=== PATIENT | female | born 1990 | race Caucasian/White ===

== ENCOUNTER → 2017-09-09 09:20 | Outpatient (CLI) | payer OTHER, MEDICAID, SELFPAY | PROVIDERS: PCP Physician Assistant; Visit Provider Physician Assistant | DX: Z53.9 Procedure and treatment not carried out, unspecified reason (principal) ==

== ENCOUNTER → 2017-09-09 09:32 | Outpatient (CLI) | payer OTHER, MEDICAID, SELFPAY ==
[2017-09-09 11:17] LABS: HCG Quantitative /Beta subunit < 2.39 mIU/mL
== END ==
PROVIDERS: PCP Physician Assistant; Visit Provider Physician Assistant
DX: N92.6 Irregular menstruation, unspecified (principal)
CPT/HCPCS: 36415; 84702

== ENCOUNTER → 2017-09-11 17:47 | Outpatient (CLI) | payer OTHER, MEDICAID, SELFPAY | PROVIDERS: PCP Physician Assistant; Visit Provider Physician Assistant | DX: Z53.9 Procedure and treatment not carried out, unspecified reason (principal) ==

== ENCOUNTER 2018-04-18 08:42 | Emergency (ER) | payer OTHER, MEDICAID, SELFPAY ==
[2018-04-18 08:56] VITALS: BP 137/92; PULSE 77; RESP 16; TEMP 36.3; O2SAT 100
--- NOTE | 2018-04-18 09:07 | ED.URI ---
HPI - URI/Sore Throat General Chief Complaint: Upper Respiratory Symptoms Stated Complaint: States abscess in throat Time Seen by Provider: 04/18/18 09:05 Source: patient and family Mode of arrival: ambulatory Limitations: no limitations History of Present Illness HPI Narrative: This is a 27-year-old female comes to the emergency department with complaint of right-sided throat pain patient states she has had symptoms on and off for about 2 weeks Friday she started having some more persistent sore throat. She was seen on and started oral antibiotics afternoon. Since then she feels like she has not really any improvement in her pain has not improved in is maybe a little bit worse. She does think swelling is significantly worse. Patient states she was started Augmentin, she was given a dose of Decadron in the urgent care clinic but no oral steroids. And was told to come here if she was not improving. Patient denies any fevers. She states she has been. She states painful so she has fluids. Patient states she feels like she to sleep night fluids other painful she is stridor breathing. Patient chest pain shortness of symptoms she denies any medical she states she history strep she has surgeries. She denies any allergies to medications. Related Data Previous Rx's Medication Instructions Recorded betamethasone dipropionate 1 bartolome TP 2XWEEK #60 ml 05/07/17 norethindrone-e.estradiol-iron 1 tab PO QDAY #1 pac 05/28/17 [Henning Fe 03/29 ()] hydroxyzine pamoate 25 mg capsule 25 - 50 mg PO HSP PRN #45 cap 09/09/17 citalopram 20 mg tablet 20 mg PO BID #60 tab 12/09/17 amoxicillin 875 mg-potassium 1 tab PO BID 10 Days #20 tab 04/16/18 clavulanate 125 mg tablet clindamycin HCl 300 mg PO QID #40 cap 04/18/18 prednisone See Rx Instructions .ROUTE 04/18/18 .COMPLEX #26 tab Allergies Allergy/AdvReac Type Severity Reaction Status Date / Time No Known Drug Allergies Allergy Verified 04/16/18 10:46 Review of Systems Review of Systems ROS Unobtainable: All systems reviewed & are unremarkable except as noted in HPI and below Constitutional Denies chills, Denies fever(s), Reports headache(s), Denies lethargy, Denies snoring and Denies weakness ENT Ears, Nose, Mouth, and Throat: Denies ear discharge, Reports otalgia (right side/side of swelling), Denies facial pain, Reports headache(s), Reports hoarseness, Denies neck mass, Denies neck pain, Reports sore throat, Reports throat swelling (right side of throat) and Denies tongue swelling Cardiovascular Denies chest pain, Denies dyspnea and Denies dyspnea on exertion Respiratory Denies cough, Denies dyspnea, Denies dyspnea on exertion, Denies snoring, Denies stridor and Denies wheezing Gastrointestinal Gastrointestinal: Denies nausea and Denies vomiting Musculoskeletal Denies neck pain Integumentary/Breasts Denies rash Neurologic Reports headache(s) and Denies weakness Allergic/Immunologic Reports throat swelling (right side of throat), Denies tongue swelling and Denies wheezing PFS Medical History Abnormal CXR (chest x-ray) (Acute) Depression with anxiety (Chronic) Migraines (Chronic) Chickenpox (Resolved) Surgical History Hx of surgical procedure (Resolved 1993) Family History Father Age: 67 Controlled type 2 diabetes mellitus without complication, unspecified 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 insulin use status Essential hypertension Gout, unspecified cause, unspecified chronicity, unspecified site History of prostate cancer High cholesterol Grandfather Cancer Hypertension High cholesterol Stroke Grandmother History of breast cancer Heart disease Hypertension High cholesterol Mother Age: 60 Essential hypertension Hyperlipidemia Arthritis Grandfather Cancer Hypertension Mental health problem Dementia Grandmother Age: 87 Cancer Diabetes mellitus Hypertension High cholesterol Social History Smoking Status: Never smoker second hand exposure: No alcohol intake: current (wine or beer about once a week or so.) substance use type: former substance user (marijuana.) Family History Father Age: 67 Controlled type 2 diabetes mellitus without complication, unspecified 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 insulin use status Essential hypertension Gout, unspecified cause, unspecified chronicity, unspecified site History of prostate cancer High cholesterol Grandfather Cancer Hypertension High cholesterol Stroke Grandmother History of breast cancer Heart disease Hypertension High cholesterol Mother Age: 60 Essential hypertension Hyperlipidemia Arthritis Grandfather Cancer Hypertension Mental health problem Dementia Grandmother Age: 87 Cancer Diabetes mellitus Hypertension High cholesterol Social History Smoking Status: Never smoker second hand exposure: No alcohol intake: current (wine or beer about once a week or so.) substance use type: former substance user (marijuana.) Exam Narrative Exam Narrative: GEN: well nourished, well appearing female, alert and oriented x 3, patient appears to be in mild distress. HEENT: Atraumatic, pupils are equal round reactive to light, extraocular movements are intact, nares are clear, TMs are clear with no fluid, there is no conjunctival pallor. Patient has swelling erythema of the right side of throat, no point or clear sign of drainage, patient's uvula is shifted slightly to the left. Patient does not have any facial or neck swelling appreciated. Patient does not have any erythema or skin changes the outside. No swelling of the tongue, no angioedema. No stridor. Patient is not having any difficulty with secretions. No tried potting she is lying back. HEART: Regular rate and rhythm without murmur, clicks, rubs. LUNGS:Lungs clear to auscultation, no wheezes, rales, crackles, chest moves symmetrically ABD:bowel sounds normal, soft, non-tender, no guarding, rebound, rigidity, no masses noted, no hepatosplenomegaly MSCL: Non-tender, no muscle atrophy, muscles strength 5/5 upper and lower extremities, full range of motion, normal gait NEURO:CN 2-12 intact, sensation normal Initial Vital Signs Initial Vital Signs: Vital Signs Temperature 97.4 F L 04/18/18 08:56 Pulse Rate 77 04/18/18 08:56 Respiratory Rate 16 04/18/18 08:56 Blood Pressure 137/92 H 04/18/18 08:56 Pulse Oximetry 100 04/18/18 08:56 Course Orders Ordered: ED Orders 04/18/18 09:30 Basic Metabolic Panel Stat Complete Blood Count AUTO DIFF Stat Lactate (Lactic Acid) Stat 04/18/18 10:00 Urinalysis and Microscopic Stat Discontinued Medications Dexamethasone (Decadron) 10 mg IV NOW ONE Stop: 04/18/18 09:06 Last Admin: 04/18/18 09:34 Dose: 10 mg Clindamycin Phosphate (Cleocin) 600 mg in 50 mls @ 50 mls/hr IV NOW ONE Stop: 04/18/18 10:04 Last Infusion: 04/18/18 10:33 Dose: 0 mls/hr Admin: 04/18/18 09:33 Dose: 50 mls/hr Sodium Chloride (Normal Saline 0.9%) 1,000 mls @ 1,000 mls/hr IV BOLUS ONE Stop: 04/18/18 10:04 Last Infusion: 04/18/18 12:12 Dose: 0 mls/hr Admin: 04/18/18 09:33 Dose: 1,000 mls/hr Ketorolac Tromethamine (Toradol) 30 mg IV NOW ONE Stop: 04/18/18 09:06 Last Admin: 04/18/18 09:33 Dose: 30 mg Vital Signs - 8 hr 04/18/18 11:00 04/18/18 11:26 04/18/18 11:43 Pulse Rate 71 80 82 Respiratory Rate 16 17 16 Blood Pressure [Right Arm] 122/89 122/89 124/82 Pulse Oximetry 99 100 100 MDM - URI/Sore Throat Lab Data Attestation: I reviewed the patient's lab results. Result diagrams: 04/18/18 09:30 04/18/18 09:30 Lab Results 04/18/18 04/18/18 04/18/18 Range/Units 09:30 09:30 09:30 WBC 12.4 H (4.5-11.0) X10^3/uL RBC 4.04 (4.0-5.2) X10^6/uL Hgb 12.1 (12.0-16.0) g/dL Hct 36.3 (36-46) % MCV 89.8 (80-100) fL MCH 29.9 (26-34) PG MCHC 33.3 (30-36) % RDW 12.4 (11.6-14.8) % Plt Count 318 (150-400) X10^3/uL Neut % (Auto) 76.3 H (50-75) % Lymph % (Auto) 14.2 L (25-40) % [place] % (Auto) 7.6 (3-14) % Eos % (Auto) 1.3 L (2-4) % Baso % (Auto) 0.6 (0-2) % Neut # (Auto) 9400 H (9007-0828) /uL Lymph # (Auto) 1800 (8221-5226) /uL [place] # (Auto) 900 (0-900) /uL Eos # (Auto) 200 (0-450) /uL Baso # (Auto) 100 (0-100) /uL Sodium 139 (137-145) mmol/L Potassium 4.6 (3.4-5.1) mmol/L Chloride 103 (98-107) mmol/L Carbon Dioxide 26 (22-32) mmol/L BUN 12 (7-17) mg/dL Creatinine 0.70 (0.52-1.04) mg/dL Estimated GFR > 60.0 (>60) mL/min BUN/Creatinine Ratio 17.1 (6-22) Glucose 98 (70-100) mg/dL Lactate 1.2 (0.7-2.1) mmol/L Calcium 9.3 (8.4-10.2) mg/dL Urine Color Urine Appearance Urine pH (4.5-8.0) Ur Specific [place] (1.000-1.035) Urine Protein (Negative) Urine Glucose (UA) (Negative) g/dL Urine Ketones (NEGATIVE) Urine Occult Blood (Negative) Urine Nitrate (Negative) Urine Bilirubin (NEGATIVE) Urine Urobilinogen (0.2) E.U./dL Ur Leukocyte Esterase (NEGATIVE) Urine RBC (0-5/HPF) Urine WBC (0-5/HPF) Ur Squamous Epith Cells Urine Bacteria (None) Ur Culture Indicated? 04/18/18 Range/Units 10:00 WBC (4.5-11.0) X10^3/uL RBC (4.0-5.2) X10^6/uL Hgb (12.0-16.0) g/dL Hct (36-46) % MCV (80-100) fL MCH (26-34) PG MCHC (30-36) % RDW (11.6-14.8) % Plt Count (150-400) X10^3/uL Neut % (Auto) (50-75) % Lymph % (Auto) (25-40) % [place] % (Auto) (3-14) % Eos % (Auto) (2-4) % Baso % (Auto) (0-2) % Neut # (Auto) (9716-4011) /uL Lymph # (Auto) (5638-1157) /uL [place] # (Auto) (0-900) /uL Eos # (Auto) (0-450) /uL Baso # (Auto) (0-100) /uL Sodium (137-145) mmol/L Potassium (3.4-5.1) mmol/L Chloride (98-107) mmol/L Carbon Dioxide (22-32) mmol/L BUN (7-17) mg/dL Creatinine (0.52-1.04) mg/dL Estimated GFR (>60) mL/min BUN/Creatinine Ratio (6-22) Glucose (70-100) mg/dL Lactate (0.7-2.1) mmol/L Calcium (8.4-10.2) mg/dL Urine Color Yellow Urine Appearance Clear Urine pH 5.5 (4.5-8.0) Ur Specific [place] 1.015 (1.000-1.035) Urine Protein Negative (Negative) Urine Glucose (UA) Negative (Negative) g/dL Urine Ketones Negative (NEGATIVE) Urine Occult Blood 2+ H (Negative) Urine Nitrate Negative (Negative) Urine Bilirubin Negative (NEGATIVE) Urine Urobilinogen 0.2 (0.2) E.U./dL Ur Leukocyte Esterase Negative (NEGATIVE) Urine RBC None seen (0-5/HPF) Urine WBC None seen (0-5/HPF) Ur Squamous Epith Cells 0-1 /hpf Urine Bacteria None seen (None) Ur Culture Indicated? Culture not indicate Urine Dip Bedside Urine Glucose Negative Bedside Urine Bilirubin - Negative Bedside Urine Ketone - Negative Urine Specific [place] 1.020 Bedside Urine Occult Blood + Bedside Urine pH 6.0 Bedside Urine Protein - Negative Bedside Urine Urobilinogen - Negative Bedside Urine Nitrite - Negative Bedside Urine Leukocytes - Negative Esterase POC preg obtained, negative. Imaging Data CT soft tissue neck: Radiologist's impression: [address] [address] [address] Scan Report Signed Patient: RayKatt LMR#: [id number] : 1990Acct:[id number] Age/Sex: FDate of Service: 04/18/18 Loc: ED Accession Number: [id number] Procedure: CT soft tissue neck w con Ordering Provider: Katt Chang D.O. PROCEDURE: CT SOFT TISSUE NECK W CON INDICATIONS: Suspected peritonsillar abscess, not responding to antibiotics. Per technologist, patient has had a sore throat for a month, has been on antibiotics, strep diagnosis, now abscess. TECHNIQUE: After the administration of intravenous contrast, 3.0 mm axial sections acquired from the sella to the aortic arch. Additional oblique axial 3.0 mm sections acquired through the pharynx. 3 mm thick coronal and sagittal reformats were generated. For radiation dose reduction, the following was used: automated exposure control. COMPARISON: None. FINDINGS: Image quality: Excellent. Lymph nodes: There is mild enlargement of the right cervical lymph nodes, predominantly those adjacent the right jugular vein, which are likely reactive. Vessels: Visualized vasculature appears patent. Neck spaces: There is a 2.5 cm craniocaudal by 1.9 cm anteroposterior by 1.9 cm transverse peripherally enhancing fluid collection in the right peritonsillar region, consistent with an abscess and resulting in moderate mass effect upon the right tonsil which is medially displaced and partially effaces the airway. No retropharyngeal soft tissue edema identified. Glands: The parotid and submandibular glands appear normal. Thyroid gland appears unremarkable. Miscellaneous: Visualized brain and orbits appear normal. There is a 1.0 cm peripherally calcified nodule in the right upper lobe. Bones: No suspicious bony lesions. There is reversal of the normal cervical lordosis, possibly positional or secondary to muscle spasm/strain. IMPRESSION: 1. 2.5 x 1.9 x 1.9 cm right peritonsillar abscess with mass effect that partially effaces the adjacent airway. Mild right cervical lymphadenopathy is likely reactive. 2. 1.0 cm peripherally calcified pulmonary nodule in the right upper lobe, favored to represent a pulmonary granuloma. Followup CT in 6 months recommended to demonstrate stability and to rule out possible malignancy. 3. Reversal of the normal cervical lordosis, possibly positional or secondary to muscle spasm/strain. Findings discussed with the referring provider Dr. Katt Chang at approximately 10:30 AM on 04/18/[address] Valencia. Dictated by: Kuldip Valencia M.D. on 04/18/2018 at 10:17 Approved by: Kuldip Valencia M.D. on 04/18/2018 at 10:34 [facility] Narrative Medical decision making narrative: Patient was started on Augmentin and given a single dose of Decadron for peritonsillar abscess which seems consistent. She has not had any improvement after 48 hr of antibiotics. By her description she is not rapidly worsening. I discussed with patient we will give 2 L of fluid additional dose of Decadron, change her antibiotic to clindamycin, Toradol and re-evaluate. patient feeling much better after medications. discussed plan and she is comfortable, signs/symtpoms to watch for and reasons to return. Spoke with Dr. Krueger from ENT, recommends 1-2 L of, continued antibiotics. Second dose of Decadron here and then put patient on prednisone 60 mg for 2 days followed by 40 mg for 2 days followed by 20 mg for 2 days and 10 mg for 2 days. Patient is to follow up with ENT. Discharge Plan Departure Patient Disposition: Home Clinical Impression: Abscess, peritonsillar Discharge Date/Time: 04/18/18 12:12 Interventions: ED Discharge Assessment Last Done: 04/18/18 12:11 Instructions: DI for Peritonsillar Abscess -- Adult Activity Restrictions/Additional Instructions: Call Friday to set up follow-up with ENT in the next 3-5 days. Continue ibuprofen and/or Tylenol as needed for pain. Take steroids as prescribed, take these until they are completely gone. Stop Augmentin and start clindamycin. Return for persistent fevers, increasing swelling of the throat, stridor, difficulty with swallowing fluids such as inability to swallow her saliva or drooling, muffled voice, swelling of the neck or other new or concerning symptoms. Prescriptions: New clindamycin HCl 300 mg capsule 300 mg PO QID Qty: 40 RF: 0 prednisone 10 mg tablets,dose pack See Rx Instructions .ROUTE .COMPLEX Qty: 26 RF: 0 No Action hydroxyzine pamoate [Vistaril] 25 mg capsule 25 - 50 mg PO HSP PRN (Reason: insomnia) Qty: 45 RF: 1 amoxicillin-pot clavulanate 875-125 mg tablet 1 tab PO BID 10 Days Qty: 20 RF: 0 betamethasone dipropionate 0.05 % lotion 1 bartolome TP 2XWEEK Qty: 60 RF: 3 norethindrone-e.estradiol-iron [Henning Fe 03/29 (28)] 1 MG/20 MCG tablet 1 tab PO QDAY Qty: 1 RF: 12 citalopram 20 mg tablet 20 mg PO BID Qty: 60 RF: 6 Referrals: Darryl Krueger MD [Physician] - Christine Randolph PA-C [Primary Care Provider] -
--- NOTE | 2018-04-18 09:12 | ED_ITS ---
HPI - URI/Sore Throat General Chief Complaint: Upper Respiratory Symptoms Stated Complaint: States abscess in throat Time Seen by Provider: 04/18/18 09:05 Source: patient and family Mode of arrival: ambulatory Limitations: no limitations History of Present Illness HPI Narrative: This is a 27-year-old female comes to the emergency department with complaint of right-sided throat pain patient states she has had symptoms on and off for about 2 weeks Friday she started having some more persistent sore throat. She was seen on and started oral antibiotics afternoon. Since then she feels like she has not really any improvement in her pain has not improved in is maybe a little bit worse. She does think swelling is significantly worse. Patient states she was started Augmentin, she was given a dose of Decadron in the urgent care clinic but no oral steroids. And was told to come here if she was not improving. Patient denies any fevers. She states she has been. She states painful so she has fluids. Patient states she feels like she to sleep night fluids other painful she is stridor breathing. Patient chest pain shortness of symptoms she denies any medical she states she history strep she has surgeries. She denies any allergies to medications. Related Data Previous Rx's Medication Instructions Recorded betamethasone dipropionate 1 bartolome TP 2XWEEK #60 ml 05/07/17 norethindrone-e.estradiol-iron 1 tab PO QDAY #1 pac 05/28/17 [[place] Fe 03/29 ()] hydroxyzine pamoate 25 mg capsule 25 - 50 mg PO HSP PRN #45 cap 09/09/17 citalopram 20 mg tablet 20 mg PO BID #60 tab 12/09/17 amoxicillin 875 mg-potassium 1 tab PO BID 10 Days #20 tab 04/16/18 clavulanate 125 mg tablet clindamycin HCl 300 mg PO QID #40 cap 04/18/18 prednisone See Rx Instructions .ROUTE 04/18/18 .COMPLEX #26 tab Allergies Allergy/AdvReac Type Severity Reaction Status Date / Time No Known Drug Allergies Allergy Verified 04/16/18 10:46 Review of Systems Review of Systems ROS Unobtainable: All systems reviewed & are unremarkable except as noted in HPI and below Constitutional Denies chills, Denies fever(s), Reports headache(s), Denies lethargy, Denies snoring and Denies weakness ENT Ears, Nose, Mouth, and Throat: Denies ear discharge, Reports otalgia (right side/side of swelling), Denies facial pain, Reports headache(s), Reports hoarseness, Denies neck mass, Denies neck pain, Reports sore throat, Reports throat swelling (right side of throat) and Denies tongue swelling Cardiovascular Denies chest pain, Denies dyspnea and Denies dyspnea on exertion Respiratory Denies cough, Denies dyspnea, Denies dyspnea on exertion, Denies snoring, Denies stridor and Denies wheezing Gastrointestinal Gastrointestinal: Denies nausea and Denies vomiting Musculoskeletal Denies neck pain Integumentary/Breasts Denies rash Neurologic Reports headache(s) and Denies weakness Allergic/Immunologic Reports throat swelling (right side of throat), Denies tongue swelling and Denies wheezing PFS Medical History Abnormal CXR (chest x-ray) (Acute) Depression with anxiety (Chronic) Migraines (Chronic) Chickenpox (Resolved) Surgical History Hx of surgical procedure (Resolved 1993) Family History Father Age: 67 Controlled type 2 diabetes mellitus without complication, 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 use status Essential hypertension Gout, unspecified cause, unspecified chronicity, unspecified site History of prostate cancer High cholesterol Grandfather Cancer Hypertension High cholesterol Stroke Grandmother History of breast cancer Heart disease Hypertension High cholesterol Mother Age: 60 Essential hypertension Hyperlipidemia Arthritis Grandfather Cancer Hypertension Mental health problem Dementia Grandmother Age: 87 Cancer Diabetes mellitus Hypertension High cholesterol Social History Smoking Status: Never smoker second hand exposure: No alcohol intake: current (wine or beer about once a week or so.) substance use type: former substance user (marijuana.) Family History Father Age: 67 Controlled type 2 diabetes mellitus without complication, 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 use status Essential hypertension Gout, unspecified cause, unspecified chronicity, unspecified site History of prostate cancer High cholesterol Grandfather Cancer Hypertension High cholesterol Stroke Grandmother History of breast cancer Heart disease Hypertension High cholesterol Mother Age: 60 Essential hypertension Hyperlipidemia Arthritis Grandfather Cancer Hypertension Mental health problem Dementia Grandmother Age: 87 Cancer Diabetes mellitus Hypertension High cholesterol Social History Smoking Status: Never smoker second hand exposure: No alcohol intake: current (wine or beer about once a week or so.) substance use type: former substance user (marijuana.) Exam Narrative Exam Narrative: GEN: well nourished, well appearing female, alert and oriented x 3, patient appears to be in mild distress. HEENT: Atraumatic, pupils are equal round reactive to light, extraocular movements are intact, nares are clear, TMs are clear with no fluid, there is no conjunctival pallor. Patient has swelling erythema of the right side of throat, no point or clear sign of drainage, patient's uvula is shifted slightly to the left. Patient does not have any facial or neck swelling appreciated. Patient does not have any erythema or skin changes the outside. No swelling of the tongue, no angioedema. No stridor. Patient is not having any difficulty with secretions. No tried potting she is lying back. HEART: Regular rate and rhythm without murmur, clicks, rubs. LUNGS:Lungs clear to auscultation, no wheezes, rales, crackles, chest moves symmetrically ABD:bowel sounds normal, soft, non-tender, no guarding, rebound, rigidity, no masses noted, no hepatosplenomegaly MSCL: Non-tender, no muscle atrophy, muscles strength 5/5 upper and lower extremities, full range of motion, normal gait NEURO:CN 2-12 intact, sensation normal Initial Vital Signs Initial Vital Signs: Vital Signs Temperature 97.4 F L 04/18/18 08:56 Pulse Rate 77 04/18/18 08:56 Respiratory Rate 16 04/18/18 08:56 Blood Pressure 137/92 H 04/18/18 08:56 Pulse Oximetry 100 04/18/18 08:56 Course Orders Ordered: ED Orders 04/18/18 09:30 Basic Metabolic Panel Stat Complete Blood Count AUTO DIFF Stat Lactate (Lactic Acid) Stat 04/18/18 10:00 Urinalysis and Microscopic Stat Discontinued Medications Dexamethasone (Decadron) 10 mg IV NOW ONE Stop: 04/18/18 09:06 Last Admin: 04/18/18 09:34 Dose: 10 mg Clindamycin Phosphate (Cleocin) 600 mg in 50 mls @ 50 mls/hr IV NOW ONE Stop: 04/18/18 10:04 Last Infusion: 04/18/18 10:33 Dose: 0 mls/hr Admin: 04/18/18 09:33 Dose: 50 mls/hr Sodium Chloride (Normal Saline 0.9%) 1,000 mls @ 1,000 mls/hr IV BOLUS ONE Stop: 04/18/18 10:04 Last Infusion: 04/18/18 12:12 Dose: 0 mls/hr Admin: 04/18/18 09:33 Dose: 1,000 mls/hr Ketorolac Tromethamine (Toradol) 30 mg IV NOW ONE Stop: 04/18/18 09:06 Last Admin: 04/18/18 09:33 Dose: 30 mg Vital Signs - 8 hr 04/18/18 11:00 04/18/18 11:26 04/18/18 11:43 Pulse Rate 71 80 82 Respiratory Rate 16 17 16 Blood Pressure [Right Arm] 122/89 122/89 124/82 Pulse Oximetry 99 100 100 MDM - URI/Sore Throat Lab Data Attestation: I reviewed the patient's lab results. Result diagrams: 04/18/18 09:30 04/18/18 09:30 Lab Results 04/18/18 04/18/18 04/18/18 Range/Units 09:30 09:30 09:30 WBC 12.4 H (4.5-11.0) X10^3/uL RBC 4.04 (4.0-5.2) X10^6/uL Hgb 12.1 (12.0-16.0) g/dL Hct 36.3 (36-46) % MCV 89.8 (80-100) fL MCH 29.9 (26-34) PG MCHC 33.3 (30-36) % RDW 12.4 (11.6-14.8) % Plt Count 318 (150-400) X10^3/uL Neut % (Auto) 76.3 H (50-75) % Lymph % (Auto) 14.2 L (25-40) % [place] % (Auto) 7.6 (3-14) % Eos % (Auto) 1.3 L (2-4) % Baso % (Auto) 0.6 (0-2) % Neut # (Auto) 9400 H (0119-3915) /uL Lymph # (Auto) 1800 (5578-9583) /uL [place] # (Auto) 900 (0-900) /uL Eos # (Auto) 200 (0-450) /uL Baso # (Auto) 100 (0-100) /uL Sodium 139 (137-145) mmol/L Potassium 4.6 (3.4-5.1) mmol/L Chloride 103 (98-107) mmol/L Carbon Dioxide 26 (22-32) mmol/L BUN 12 (7-17) mg/dL Creatinine 0.70 (0.52-1.04) mg/dL Estimated GFR > 60.0 (>60) mL/min BUN/Creatinine Ratio 17.1 (6-22) Glucose 98 (70-100) mg/dL Lactate 1.2 (0.7-2.1) mmol/L Calcium 9.3 (8.4-10.2) mg/dL Urine Color Urine Appearance Urine pH (4.5-8.0) Ur Specific [place] (1.000-1.035) Urine Protein (Negative) Urine Glucose (UA) (Negative) g/dL Urine Ketones (NEGATIVE) Urine Occult Blood (Negative) Urine Nitrate (Negative) Urine Bilirubin (NEGATIVE) Urine Urobilinogen (0.2) E.U./dL Ur Leukocyte Esterase (NEGATIVE) Urine RBC (0-5/HPF) Urine WBC (0-5/HPF) Ur Squamous Epith Cells Urine Bacteria (None) Ur Culture Indicated? 04/18/18 Range/Units 10:00 WBC (4.5-11.0) X10^3/uL RBC (4.0-5.2) X10^6/uL Hgb (12.0-16.0) g/dL Hct (36-46) % MCV (80-100) fL MCH (26-34) PG MCHC (30-36) % RDW (11.6-14.8) % Plt Count (150-400) X10^3/uL Neut % (Auto) (50-75) % Lymph % (Auto) (25-40) % [place] % (Auto) (3-14) % Eos % (Auto) (2-4) % Baso % (Auto) (0-2) % Neut # (Auto) (8135-2974) /uL Lymph # (Auto) (4941-1118) /uL [place] # (Auto) (0-900) /uL Eos # (Auto) (0-450) /uL Baso # (Auto) (0-100) /uL Sodium (137-145) mmol/L Potassium (3.4-5.1) mmol/L Chloride (98-107) mmol/L Carbon Dioxide (22-32) mmol/L BUN (7-17) mg/dL Creatinine (0.52-1.04) mg/dL Estimated GFR (>60) mL/min BUN/Creatinine Ratio (6-22) Glucose (70-100) mg/dL Lactate (0.7-2.1) mmol/L Calcium (8.4-10.2) mg/dL Urine Color Yellow Urine Appearance Clear Urine pH 5.5 (4.5-8.0) Ur Specific [place] 1.015 (1.000-1.035) Urine Protein Negative (Negative) Urine Glucose (UA) Negative (Negative) g/dL Urine Ketones Negative (NEGATIVE) Urine Occult Blood 2+ H (Negative) Urine Nitrate Negative (Negative) Urine Bilirubin Negative (NEGATIVE) Urine Urobilinogen 0.2 (0.2) E.U./dL Ur Leukocyte Esterase Negative (NEGATIVE) Urine RBC None seen (0-5/HPF) Urine WBC None seen (0-5/HPF) Ur Squamous Epith Cells 0-1 /hpf Urine Bacteria None seen (None) Ur Culture Indicated? Culture not indicate Urine Dip Bedside Urine Glucose Negative Bedside Urine Bilirubin - Negative Bedside Urine Ketone - Negative Urine Specific [place] 1.020 Bedside Urine Occult Blood + Bedside Urine pH 6.0 Bedside Urine Protein - Negative Bedside Urine Urobilinogen - Negative Bedside Urine Nitrite - Negative Bedside Urine Leukocytes - Negative Esterase POC preg obtained, negative. Imaging Data CT soft tissue neck: Radiologist's impression: [address] [address] [address] Scan Report Signed Patient: RayKatt LMR#: [id number] : 1990Acct:[id number] Age/Sex: FDate of Service: 04/18/18 Loc: ED Accession Number: [id number] Procedure: CT soft tissue neck w con Ordering Provider: Katt Chang D.O. PROCEDURE: CT SOFT TISSUE NECK W CON INDICATIONS: Suspected peritonsillar abscess, not responding to antibiotics. Per technologist, patient has had a sore throat for a month, has been on antibiotics, strep diagnosis, now abscess. TECHNIQUE: After the administration of intravenous contrast, 3.0 mm axial sections acquired from the sella to the aortic arch. Additional oblique axial 3.0 mm sections acquired through the pharynx. 3 mm thick coronal and sagittal reformats were generated. For radiation dose reduction, the following was used: automated exposure control. COMPARISON: None. FINDINGS: Image quality: Excellent. Lymph nodes: There is mild enlargement of the right cervical lymph nodes, predominantly those adjacent the right jugular vein, which are likely reactive. Vessels: Visualized vasculature appears patent. Neck spaces: There is a 2.5 cm craniocaudal by 1.9 cm anteroposterior by 1.9 cm transverse peripherally enhancing fluid collection in the right peritonsillar region, consistent with an abscess and resulting in moderate mass effect upon the right tonsil which is medially displaced and partially effaces the airway. No retropharyngeal soft tissue edema identified. Glands: The parotid and submandibular glands appear normal. Thyroid gland appears unremarkable. Miscellaneous: Visualized brain and orbits appear normal. There is a 1.0 cm peripherally calcified nodule in the right upper lobe. Bones: No suspicious bony lesions. There is reversal of the normal cervical lordosis, possibly positional or secondary to muscle spasm/strain. IMPRESSION: 1. 2.5 x 1.9 x 1.9 cm right peritonsillar abscess with mass effect that partially effaces the adjacent airway. Mild right cervical lymphadenopathy is likely reactive. 2. 1.0 cm peripherally calcified pulmonary nodule in the right upper lobe, favored to represent a pulmonary granuloma. Followup CT in 6 months recommended to demonstrate stability and to rule out possible malignancy. 3. Reversal of the normal cervical lordosis, possibly positional or secondary to muscle spasm/strain. Findings discussed with the referring provider Dr. Katt Chang at approximately 10:30 AM on 04/18/[address] Valencia. Dictated by: Kuldip Valencia M.D. on 04/18/2018 at 10:17 Approved by: Kuldip Valencia M.D. on 04/18/2018 at 10:34 [facility] Narrative Medical decision making narrative: Patient was started on Augmentin and given a single dose of Decadron for peritonsillar abscess which seems consistent. She has not had any improvement after 48 hr of antibiotics. By her description she is not rapidly worsening. I discussed with patient we will give 2 L of fluid additional dose of Decadron, change her antibiotic to clindamycin, Toradol and re-evaluate. patient feeling much better after medications. discussed plan and she is comfortable, signs/symtpoms to watch for and reasons to return. Spoke with Dr. Krueger from ENT, recommends 1-2 L of, continued antibiotics. Second dose of Decadron here and then put patient on prednisone 60 mg for 2 days followed by 40 mg for 2 days followed by 20 mg for 2 days and 10 mg for 2 days. Patient is to follow up with ENT. Discharge Plan Departure Patient Disposition: Home Clinical Impression: Abscess, peritonsillar Discharge Date/Time: 04/18/18 12:12 Interventions: ED Discharge Assessment Last Done: 04/18/18 12:11 Instructions: DI for Peritonsillar Abscess -- Adult Activity Restrictions/Additional Instructions: Call Friday to set up follow-up with ENT in the next 3-5 days. Continue ibuprofen and/or Tylenol as needed for pain. Take steroids as prescribed, take these until they are completely gone. Stop Augmentin and start clindamycin. Return for persistent fevers, increasing swelling of the throat, stridor, difficulty with swallowing fluids such as inability to swallow her saliva or drooling, muffled voice, swelling of the neck or other new or concerning symptoms. Prescriptions: New clindamycin HCl 300 mg capsule 300 mg PO QID Qty: 40 RF: 0 prednisone 10 mg tablets,dose pack See Rx Instructions .ROUTE .COMPLEX Qty: 26 RF: 0 No Action hydroxyzine pamoate [Vistaril] 25 mg capsule 25 - 50 mg PO HSP PRN (Reason: insomnia) Qty: 45 RF: 1 amoxicillin-pot clavulanate 875-125 mg tablet 1 tab PO BID 10 Days Qty: 20 RF: 0 betamethasone dipropionate 0.05 % lotion 1 bartolome TP 2XWEEK Qty: 60 RF: 3 norethindrone-e.estradiol-iron [[place] Fe 03/29 (28)] 1 MG/20 MCG tablet 1 tab PO QDAY Qty: 1 RF: 12 citalopram 20 mg tablet 20 mg PO BID Qty: 60 RF: 6 Referrals: Darryl Krueger MD [Physician] - Christine Randolph PA-C [Primary Care Provider] -
--- NOTE | 2018-04-18 09:16 | PC.NURSE ---
pt reports right throat pain for one month, seen at the clinic , treated with antibiotic for 2 days now and also taking ibuprofen. reporting difficulty with drinking water and talking. increase in pain, now with hoarse voice. denies nausea,vomiting, has diarrhea 6-7 times since antibiotics, denies blood.
[2018-04-18] MEDS: KETOROLAC 60 MG/2 ML VIAL 30 MG IV (09:33)
[2018-04-18] MEDS: CLINDAMYCIN 600 MG/50 ML PIGGYBACK 50 MG IV (09:33)
[2018-04-18] MEDS: SODIUM CHLORIDE 0.9% 1,000 ML 1000 ML IV (09:33)
[2018-04-18] MEDS: DEXAMETHASONE 10 MG/ML VIAL IV (09:34)
[2018-04-18 09:44] LABS: Add Manual Diff / Slide Review NO; Basophils Absolute Auto 100 /uL (0-100); Basophils Percent Auto 0.6 % (0-2); Eosinophils Absolute Auto 200 /uL (0-450); Eosinophils Percent Auto 1.3 % (2-4); Hematocrit 36.3 % (36-46); Hemoglobin 12.1 g/dL (12.0-16.0); Lymphocytes Absolute Auto 1800 /uL (1100-4500); Lymphocytes Percent Auto 14.2 % (25-40); Mean Corpuscular HGB Conc 33.3 % (30-36); Mean Corpuscular Hemoglobin 29.9 PG (26-34); Mean Corpuscular Volume 89.8 fL (80-100); Monocytes Absolute Auto 900 /uL (0-900); Monocytes Percent Auto 7.6 % (3-14); Neutrophils Absolute Auto 9400 /uL (1500-7000); Neutrophils Percent Auto 76.3 % (50-75); Platelet Count 318 X10^3/uL (150-400); Red Blood Cell Count 4.04 X10^6/uL (4.0-5.2); Red Cell Distribution Width 12.4 % (11.6-14.8); White Blood Cell Count 12.4 X10^3/uL (4.5-11.0)
[2018-04-18 09:57] LABS: BUN Creatinine Ratio 17.1 (6-22); Blood Urea Nitrogen 12 mg/dL (7-17); Calcium 9.3 mg/dL (8.4-10.2); Carbon Dioxide 26 mmol/L (22-32); Chloride 103 mmol/L (98-107); Estimated Glomerular Filt Rate > 60.0 mL/min (>60); Glucose 98 mg/dL (70-100); HEMOLYSIS < 15 (0-50); Lactate (Lactic Acid) 1.2 mmol/L (0.7-2.1); Potassium 4.6 mmol/L (3.4-5.1); Sodium 139 mmol/L (137-145)
[2018-04-18 10:27] LABS: Bacteria Urine None Seen; RBC Urine None Seen (0-5/HPF); WBC Urine None Seen (0-5/HPF)
[2018-04-18 10:35] LABS: Appearance Urine UA CLEAR; Bilirubin Urine UA NEGATIVE (NEGATIVE); Color Urine UA YELLOW; Glucose Urine UA NEGATIVE (Negative); Ketones Urine UA NEGATIVE (NEGATIVE); Leukocyte Esterase Urine UA NEGATIVE (NEGATIVE); Nitrite Urine UA NEGATIVE (Negative); Occult Blood Urine UA 2+ (Negative); Protein Urine UA NEGATIVE (Negative); Specific Gravity Urine UA 1.015 (1.000-1.035); Urobilinogen Urine UA 0.2 E.U./dL (0.2); pH Urine UA 5.5 (4.5-8.0)
[2018-04-18 10:48] LABS: Squamous Epithelial Cell Urine 0-1 /HPF
[2018-04-18 11:00] VITALS: BP 122/89; PULSE 70; PULSE 71; RESP 16; RESP 21; O2SAT 99
[2018-04-18 11:26] VITALS: BP 122/89; PULSE 80; RESP 17; O2SAT 100
[2018-04-18 11:43] VITALS: BP 124/82; PULSE 82; RESP 16; O2SAT 100
== END 2018-04-18 12:12 | disposition home or self-care (01) ==
PROVIDERS: Emergency Provider Emergency Medicine; PCP Physician Assistant
DX: J36 Peritonsillar abscess (principal)
CPT/HCPCS: 36591; 70491; 80048; 81001; 81003; 83605; 85025; 96361; 96365; 96375; 99283; 99285; J1100; J1885; Q9967

== ENCOUNTER → 2019-02-10 14:50 | Outpatient (CLI) | payer OTHER, MEDICAID, SELFPAY | PROVIDERS: PCP Physician Assistant; Visit Provider Nurse Practitioner Family | DX: L65.9 Nonscarring hair loss, unspecified (principal) | CPT/HCPCS: 36415; 84443 ==